=== PATIENT | female | born 1990 | race Hispanic/Latino ===

== ENCOUNTER 2021-10-13 12:48 | Emergency (ER) | payer BC ==
--- OUTSIDE RECORDS SUMMARY | 2021-10-13 12:53 | XMS REPORT | Continuity of Care Document ---
:1990 Author Organization [facility] t Address [address] [place] [address] Care Team Providers Name Role Phone RODRIGUEZVANESSA Primary Care Physician Unavailable Royce Rodriguez Attending Clinician Unavailable SOHA PAPPAS Attending Clinician Unavailable MIAN Attending Clinician Unavailable DAMARI Attending Clinician Unavailable Benny OSORIO Attending Clinician BENNY Attending Clinician Unavailable Stewart MCNALLY Attending Clinician Unavailable Susu ALVAREZ Attending Clinician Unavailable Doctor Unassigned, Name Attending Clinician Unavailable Lab, Fam Pob I Attending Clinician Unavailable SOHA PAPPAS Admitting Clinician Unavailable SCOTT STOVER Admitting Clinician Unavailable Payers Payer Name Policy Type Policy Number Effective Date Expiration Date S sandra BCBSTX BLUE [id number] 2020 ESSENTIALS/BLUE 00:00:00 ESSENTIALS ACCESS HMO Problems Condition Condition Condition Status Onset Resolution Last Treating Co mments Source Name Details Category Date Date Treatment Clinician Date MORBID Diagnosis Active 2021-09-21 Mem oria OBESITY - 1-13 12:43:00 l E66.01 / MORBID 00:00: [place] HIATAL OBESITY - 00 HERNIA E66.01 / HIATAL HERNIA Active 09/09/2021 [facility] [place] Type 2 Type 2 Disease Active 2021-1 Univers diabetes diabetes 1-13 ity of mellitus mellitus 00:00: [place] without without 00 Medical complicati complicati Br anch on, on, without without long-term long-term current current use of use of insulin insulin Morbid Morbid Disease Active 2020-08 Univers obesity obesity 1-13 ity of with BMI with BMI 00:00: [place] of of 00 Medical 40.0-44.9, 40.0-44.9, Br anch adult adult REFLUX - Diagnosis Active 2021-03-23 M emoria K21.9 7-12 08:16:00 l REFLUX - 00:00: [place] K21.9 00 Active 03/08/2021 [facility] [place] GASTRO-ESO Diagnosis Active 2021-03-23 Memoria PHAGEAL 08:16:00 l REFLUX [place] DISEASE GASTRO-ESO WITHOUT PHAGEAL REFLUX DISEASE WITHOUT Active [facility] [place] MORBID Diagnosis Active 2021-09-21 Mem oria (SEVERE) 12:43:00 l OBESITY MORBID [place] DUE TO (SEVERE) EXCESS CA OBESITY DUE TO EXCESS CA Active MH [place] Depressive Problem Resolve 2021-09-27 Memoria disorder d 08:39:51 l (disorder) [place] Depressive disorder (disorder) Resolved Problem 09/27/2021 [facility] [place] Diabetes Problem Resolve 2021-09-27 Me moria mellitus d 08:39:51 l (disorder) Diabetes He [place] mellitus (disorder) Resolved Problem 09/27/2021 [facility] [place] Polycystic Problem Resolve 2021-09-27 Memoria ovary d 08:39:51 l syndrome [place] Polycystic ovary syndrome Resolved Problem 09/27/2021 [facility] [place] No known No known Disease [place] active active Health problems problems Allergies, Adverse Reactions, Alerts Allergy Allergy Status Severity Reaction(s) Onset Inactive Treating Comm ents Source Name Type Date Date Clinician NO KNOWN Drug Active Univers ALLERGIE Class ity of [facility] Social History Social Habit Start Date Stop Date Quantity Comments Source History [facility] University o f Alcohol Std [place] [facility] History [facility] University o f Alcohol Binge [facility] Exposure to Not sure [place] [facility] SARS-CoV-2 (event) Alcohol intake 2021-09-08 2021-09-08 Current drinker Unive rsity of 00:00:00 00:00:00 of alcohol [place] [facility] (finding) [facility] Alcohol Comment 2021-08-172021-08-17 1-2 x per month, Uni versity of 00:00:00 00:00:[address] [facility] History SDOH 2021-07-10 2021-07-10 1 University o f Alcohol Frequency 00:00:00 00:00:00 [facility] Tobacco use and 2021-06-09 2021-06-09 Never used Universit y of exposure 00:00:00 00:00:[address] [facility] Social History 2021-03-16 2021-03-16 [facility] ermann 21:11:08 21:11:08 Sex [birth year] Universit y of 00:00:00 00:00:[address] [facility] Smoking Status Start Date Stop Date Source Never smoker [facility] Medications Ordered Filled Start Stop Current Ordering Indication Dosage Frequency Signature Comments Components Source Medication Medication Date Date Medication? Clinician (SIG) Name Name [facility] No Notes: Memoria 1- Same as l 11:00: Ancef [place] 00 Lovenox Yes Notes: Memoria 1- (Same as: l 11:00: Lovenox) Neurontin Yes Notes: Memori a - (Same as: l 11:00: Neurontin) Celebrex Yes Notes: Memoria - NSAID. l 11:00: Please check indication . Not for seizure. (Same As: CeleBREX) Ofirmev Yes Notes: Memoria 1- Infuse l 11:00: over 15 minutes Do not exceed 4gm/day of acetaminop hen MEDICATION WASTE Product Size: 1000 mg Product Wasted: ___ mg Mefoxin Yes Notes: Memoria 1- (Same As: l 11:00: Mefoxin) MEDICATION WASTE Product Size: 2000 mg Product Wasted: ___ mg Scopolamine Yes Notes: Nikhil martin 09-23 Remove old l 11:00: patch Edi 00 before applicatio n of new patch Change patch every 72 hours (Same as: Transderm- Scop) blood sugar Yes [id number] Use as Univers diagnostic -12 directed ity o f (ACCU-CHEK 00:00: daily [place] GUIDE TEST 00 Medical STRIPS) Branch strip glipiZIDE Yes [id number] 10mg Take 1 U nivers XL 10 mg 24 -12 tablet by ity of hr tablet 00:00: mouth [place] 00 daily with Medical breakfast. Branch dapaglifloz Yes [id number] 10mg Take 1 Univers in -12 tablet by ity of ([facility]) 00:00: mouth [place] 10 mg 00 daily. Medical tablet Branch ACCU-CHEK Yes [id number] Use as U nivers SOFTCLIX -12 directed ity of LANCETS 00:00: daily [place] Misc 00 Medical Branch escitalopra 2020-08 Yes 20mg Take 20 mg Univers m oxalate 10-18 by mouth. ity o f 20 mg 14:10: [place] tablet 11 Medical Branch Norethindrn 2020-08 Yes Univer s A-E 2- ity of Estradiol-I 14:10: [place] ciara 11 Medical (BLISOVI 24 Branch FE) 1 mg-20 mcg (24)/75 mg (4) per tablet dapaglifloz 2020-08- No [id number] 10mg Take 1 Univers in 0-13 -12 tablet by ity of (XICT) 00:00: 00:00 mouth [place] 10 mg 00 :00 daily. Medical tablet Branch glipiZIDE 2020-08- No [id number] 10mg Take 1 Univers XL 10 mg 24 0-13 -12 tablet by it y of hr tablet 00:00: 00:00 mouth [place] 00 :00 daily with Medical breakfast. Branch ergocalcife 2020-08 Yes TAKE ONE Un kyleigh rol, 0- (1) ity of vitamin d2, 00:00: CAPSULE(S) [place] 1,250 mcg 00 BY MOUTH Medica l (50,000 TWICE Branch unit) WEEKLY. capsule lidocaine No Route: IV, Me moria (ANES) 03-23 Drug form: l 14:16: INJ, ONCE, Stop date: 03/23/21 9:16:00 CDT propofol No Route: IV, Mem oria (ANES) 03-23 Drug form: l 14:16: INJ, ONCE, [place] 00 Stop date: 03/23/21 9:16:00 CDT Lactated No Route: IV, Mem oria Ringers 03-23 Total l Injection 13:58: Volume: Lydia nn IV (ANES) 00 1,000, 1000 mL Start date: 03/23/21 8:58:00 CDT, Stop date: 03/23/21 9:58:00 CDT Empaglifloz 2020-0 Yes Take by [place] in 7-08 mouth. Health (JARDIANCE 13:21: PO) 24 norethindro 2020-0 Yes UT ne-ethinyl 03-04 Health estradiol-f 13:21: errous 24 fumarate (Blisovi 24 Fe) 1-20 MG-MCG(24) tablet escitalopra 0 Yes 20mg QD Take 20 mg UT m (Lexapro) 03-04 by mouth 1 He alth 20 MG 13:21: (one) time tablet 24 each day. Empaglifloz 2020-0 Yes Take by [facility] in 7- mouth. Health (JARDIANCE 13:21: PO) 24 norethindro 2020-0 Yes UT ne-ethinyl 03-04 Health estradiol-f 13:21: errous 24 fumarate (Blisovi 24 Fe) 1-20 MG-MCG(24) tablet escitalopra 2020-0 Yes 20mg QD Take 20 mg UT m (Lexapro) 03-04 by mouth 1 He alth 20 MG 13:21: (one) time tablet 24 each day. Empaglifloz 2020-0 Yes Take by [facility] in 7- mouth. Health (JARDIANCE 08:21: PO) 24 norethindro 2020-0 Yes UT ne-ethinyl 03-04 Health estradiol-f 08:21: errous 24 fumarate (Blisovi 24 Fe) 1-20 MG-MCG(24) tablet escitalopra 2020-0 Yes 20mg QD Take 20 mg [facility] m (Lexapro) 03-04 by mouth 1 He alth 20 MG 08:21: (one) time tablet 24 each day. Empaglifloz 2020-0 Yes Take by UT in 7-08 mouth. Health (JARDIANCE 08:21: PO) 24 norethindro 2021-0 Yes UT ne-ethinyl 03-04 Health estradiol-f 08:21: errous 24 fumarate (Blisovi 24 Fe) 1-20 MG-MCG(24) tablet escitalopra 2020-0 Yes 20mg QD Take 20 mg UT m (Lexapro) 03-04 by mouth 1 He alth 20 MG 08:21: (one) time tablet 24 each day. Empaglifloz 2021-0 Yes Take by [facility] in 03-04 mouth. Health (JARDIANCE 08:21: PO) 24 norethindro 2021-0 Yes UT ne-ethinyl 03-04 Health estradiol-f 08:21: errous 24 fumarate (Blisovi 24 Fe) 1-20 MG-MCG(24) tablet escitalopra 2020-0 Yes 20mg QD Take 20 mg [facility] m (Lexapro) 03-04 by mouth 1 He alth 20 MG 08:21: (one) time tablet 24 each day. Empaglifloz 1-0 Yes Take by [facility] in 03-04 mouth. Health (JARDIANCE 08:21: PO) 24 norethindro 2021-0 Yes UT ne-ethinyl 03-04 Health estradiol-f 08:21: errous 24 fumarate (Blisovi 24 Fe) 1-20 MG-MCG(24) tablet escitalopra 2020-0 Yes 20mg QD Take 20 mg [facility] m (Lexapro) 03-04 by mouth 1 He alth 20 MG 08:21: (one) time tablet 24 each day. Empaglifloz 1-0 Yes Take by [facility] in 03-04 mouth. Health (JARDIANCE 08:21: PO) 24 norethindro 2021-0 Yes UT ne-ethinyl 03-04 Health estradiol-f 08:21: errous 24 fumarate (Blisovi 24 Fe) 1-20 MG-MCG(24) tablet escitalopra 202-0 Yes 20mg QD Take 20 mg [facility] m (Lexapro) 03-04 by mouth 1 He alth 20 MG 08:21: (one) time tablet 24 each day. Empaglifloz 2021-0 Yes Take by [facility] in 7- mouth. Health (JARDIANCE 08:21: PO) 24 norethindro 2021-0 Yes UT ne-ethinyl 03-04 Health estradiol-f 08:21: errous 24 fumarate (Blisovi 24 Fe) 1-20 MG-MCG(24) tablet escitalopra 0 Yes 20mg QD Take 20 mg [facility] m (Lexapro) 03-04 by mouth 1 He alth 20 MG 08:21: (one) time tablet 24 each day. Empaglifloz 0 Yes Take by [facility] in 03-04 mouth. Health (JARDIANCE 08:21: PO) 24 norethindro 0 Yes UT ne-ethinyl 03-04 Health estradiol-f 08:21: errous 24 fumarate (Blisovi 24 Fe) 1-20 MG-MCG(24) tablet escitalopra Yes 20mg QD Take 20 mg [facility] m (Lexapro) 03-04 by mouth 1 He alth 20 MG 08:21: (one) time tablet 24 each day. omeprazole 2020-0 Yes Univers 20 mg TbLD 2-07 ity of 00:00: [address] Omeprazole 2020-0 Yes [place] 20 MG 2-07 Health Tablet 00:00: Delayed 00 Release Dispersible Omeprazole 1-0 Yes [facility] 20 MG 2-07 Health Tablet 00:00: Delayed 00 Release Dispersible Omeprazole 2021-0 Yes [facility] 20 MG 2-07 Health Tablet 00:00: Delayed 00 Release Dispersible Omeprazole 2021-0 Yes [facility] 20 MG 2-07 Health Tablet 00:00: Delayed 00 Release Dispersible Omeprazole 2021-0 Yes [facility] 20 MG 2-07 Health Tablet 00:00: Delayed 00 Release Dispersible Omeprazole 2021-0 Yes [facility] 20 MG 2-07 Health Tablet 00:00: Delayed 00 Release Dispersible Omeprazole 2021-0 Yes [facility] 20 MG 2-07 Health Tablet 00:00: Delayed 00 Release Dispersible Omeprazole 2021-0 Yes [facility] 20 MG 2-07 Health Tablet 00:00: Delayed 00 Release Dispersible Omeprazole 2021-0 Yes [facility] 20 MG 2-07 Health Tablet 00:00: Delayed 00 Release Dispersible Immunizations Ordered Immunization Filled Immunization Date Status Commen ts Source Name Name [id number] 2021-02-02 Completed Nikhil ANDRADE-1273vaxMODERNA 00:00:00 Edi [id number]-19mR 2021-01-05 Completed Nikhil rodney NA-1273vaxMODERNA 00:00:00 Edi Vital Signs Vital Name Observation Time Observation Value Comments Source Systolic blood 2021-09-09 14:55:00 124 mm[Hg] [facility] Diastolic blood 2021-09-09 14:55:00 90 mm[Hg] [facility] pressure Heart rate 2021-09-09 14:55:00 92 /min [facility] temperature 2021-09-09 14:55:00 36.22 Yamilet [facility] Body height 2021-09-09 14:55:00 165.1 cm [facility] Body weight 2021-09-09 14:55:00 115.667 [facility] BMI 2021-09-09 14:55:00 42.43 kg/m2 [facility] Systolic blood 2021-09-08 21:39:00 124 mm[Hg] [facility] Diastolic blood 2021-09-08 21:39:00 84 mm[Hg] Unive rsity of [facility] Heart rate 2021-09-08 21:39:00 102 /min [facility] Body height 2021-09-08 21:39:00 165.1 cm [facility] Body weight 2021-09-08 21:39:00 117.482 kg [facility] BMI 2021-09-08 21:39:00 43.10 kg/m2 [facility] Oxygen saturation in 2021-09-08 21:39:00 98 /min [facility] Arterial blood by [facility] Pulse oximetry Branch Body height 2021-05-27 14:41:00 165.1 cm [facility] weight 2021-05-27 14:41:00 121.882 kg [facility] BMI 2021-05-27 14:41:00 44.71 kg/m2 [facility] Body height 2021-05-27 14:41:00 165.1 cm [facility] Body weight 2021-05-27 14:41:00 121.882 kg [facility] BMI 2021-05-27 14:41:00 44.71 kg/m2 [facility] Systolic blood 2021-03-04 13:20:00 139 mm[Hg] [facility] pressure Diastolic blood 2021-03-04 13:20:00 101 mm[Hg] [facility] alth pressure Heart rate 2021-03-04 13:20:00 90 /min [facility] Body temperature 2021-03-04 13:20:00 36.61 Yamilet [facility] Body height 2021-03-04 13:20:00 165.1 cm [facility] Body weight 2021-03-04 13:20:00 123.832 kg [facility] BMI 2021-03-04 13:20:00 45.43 kg/m2 [facility] Systolic blood 2021-03-04 13:20:00 139 mm[Hg] [facility] pressure Diastolic blood 2021-03-04 13:20:00 101 mm[Hg] [facility]th pressure Heart rate 2021-03-04 13:20:00 90 /min [facility] Body temperature 2021-03-04 13:20:00 36.61 Yamilet [facility] Body height 2021-03-04 13:20:00 165.1 cm [facility] Body weight 2021-03-04 13:20:00 123.832 kg [facility] BMI 2021-03-04 13:20:00 45.43 kg/m2 [facility] Systolic (mm Hg) 2021-09-21 18:10:00 Nikhil ria Edi Diastolic (mm Hg) 2021-09-21 18:10:00 Mem orial [place] Height 2021-09-21 17:59:00 165.1 cm [facility]i Weight 2021-09-21 17:59:00 [facility] BMI Calculated 2021-09-21 17:59:00 Memori al Ed[place] Height 2021-09-21 17:07:00 165.1 cm [facility] Edi Weight 2021-09-21 17:07:00 [facility] [place] BMI Calculated 2021-09-21 17:07:00 Memori al [place] Height 2021-03-16 20:53:00 165.1 cm [facility] [place] Weight 2021-03-16 20:53:00 [facility] [place] BMI Calculated 2021-03-16 20:53:00 Ame [place] Procedures Procedure Date / Time Performing Source Performed Clinician POCT HEMOGLOBIN A1C TEST 2021-09-08 Genny Logan ity of 21:53:[address] [facility] Esophagogastroduodenoscopy, 2021-03-23 Nikhil Daley flexible, transoral; with biopsy, 14:08:00 single or multiple Cholecystectomy 2016-08-28 [facility] Edi 00:00:00 Esophagogastroduodenoscopy Bibi iaroyce Daley Encounters Start End Encounter Admission Attending Care Care Encounter Source Date/Time Date/Time Type Type Clinicians Facility Department ID 2021-09-22 Outpatient Rodriguez, Na STLMLC STLMLC [id number] [facility] 14:32:51 [facility] 2021-09-22 Outpatient Rodriguez, Na STLMLC STLMLC [id number] [facility] 14:31:30 [facility] 2021-09-22 Outpatient Rodriguez, Na STLMLC STLMLC [id number] [facility] 14:23:31 [id number] [facility] 2021-09-22 Outpatient Rodriguez, Na STLMLC STLMLC [id number] [facility] 14:10:02 [id number] [facility] 2021-09-22 Outpatient Rodriguez, Na STLMLC STLMLC [id number] [facility] 13:50:12 [id number] [facility] 2021-09-22 Outpatient Rodriguez, Na STLMLC STLMLC [id number] [facility] 13:16:33 [id number] [facility] 2021-09-22 Outpatient Rodriguez, Na STLMLC STLMLC [id number] [facility] [address] 12:48:27 [id number] [facility] 2021-09-22 Outpatient Rodriguez, Na STLMLC STLMLC [id number] [facility] 12:24:22 [id number] [facility] 2021-09-22 Outpatient Rodriguez, Na STLMLC STLMLC [id number] [facility] 12:17:49 [id number] [facility] 2021-09-22 Outpatient STLMLC STLC [id number] [facility] 12:10:39 [id number] [facility] 2021-09-17 Inpatient MIAN, [facility] AMBROSIO [id number] [facility] B 10:43:16 JASBIR 2021-09-09 Outpatient MIAN, [facility] [id number] [place] 09:17:22 [facility] 2021-05-26 Outpatient TANCHIDONOVAN, [facility] [id number] [place] 10:01:38 [facility] 2021-10-08 2021-10-10 Inpatient WALKER, [facility] AMBROSIO [id number] [facility] 05:46:00 11:50:00 JASBIR 2021-09-24 2021-09-24 ambulatory STLMLC STLC [id number] [facility] 2021-09-23 2021-09-23 [facility] [id number] Memoria 18:30:00 18:30:00 r Edi 01 l [place] Lydia 2021-09-09 2021-09-09 Consult Mian [facility] [id number] [place] 08:45:00 09:21:36 Jasbir [place] [id number] [facility] [id number] [id number] AND 4 WOMENS 2021-09-08 2021-09-08 Office Benny [facility] [id number] Univers 15:30:00 16:36:19 [facility] [id number] it y of [place] [id number] Scott as LEROY?BLEA [id number] [address] MEDICAL OFFICE BUILDING 2021-09-08 2021-09-08 Outpatient R BENNY [facility] [id number] Univers 15:30:00 16:36:19 [facility] 2021-09-08 2021-09-08 [id number] 2021-09-02 2021-09-02 ambulatory STLMLC STLMLC [id number] [facility] 00:00:00 00:00:00 Blanca Valladares ent Clinics 2021-08-25 2021-08-25 Telephone KAVITA Pappas [id number] [place] 00:00:00 00:00:00 Jasbir AURORAE [id number] H [facility] [id number] [facility] [id number] 2021-08-06 2021-08-06 KAVITA Bojorquez [facility] [id number] [place] 00:00:00 00:00:00 Peter SUGAR [id number] He alth [facility] [id number] [id number] AND 4 WOMENS 2021-05-27 2021-05-27 Nutrition KAVITA Bui [facility] [id number] 09:28:07 10:00:39 Marisol [place] [id number] [facility] [id number] [address] [id number] AND 4 WOMENS 2021-05-27 2021-05-27 Nutrition KAVITA Bui [facility] [id number] [place] 09:28:07 10:00:39 Marisol SUGAR [id number] He alth [facility] [id number] [address] [id number] AND 4 WOMENS 2021-05-26 2021-05-26 Telephone KAVITA William [facility] [id number] 00:00:00 00:00:00 Brigette [place] [id number] [facility] [id number] [address] [id number] AND 4 WOMENS 2021-05-26 2021-05-26 Telephone Brigette William [facility] 1.2.840. [id number] [place] 00:00:00 00:00:00 Brigette William [place] [id number] [facility] [facility] [id number] [id number] AND 4 WOMENS 2021-05-14 2021-05-14 [id number] 2021-05-10 2021-05-10 [facility] [id number] 2021-04-06 2021-04-06 Outpatient [facility] [id number] [facility] 2021-03-23 2021-03-23 [facility] [id number] 13:06:00 14:47:00 Outpatient r Edi 00 l [place] Lydia nn 2021-03-23 2021-03-23 Outpatient MIAN, [facility] AMBROSIO [id number] MHFB 08:06:00 09:47:00 JASBIR 2021-03-23 2021-03-23 Telephone KAVITA Cristobal SABETHA [id number] [id number] 00:00:00 00:00:00 Marika WINTER [id number] MEDICAL [id number] [place] [id number] 2021-03-23 2021-03-23 Telephone Marika Cristobal SABETHA 1.2 .840.114 [id number] [place] 00:00:00 00:00:00 Marika Cristobal [id number] 8 [facility] MEDICAL [id number] [place] [id number] 2021-03-04 2021-03-04 Office Mian [facility] 1.2.840.114 [id number] 08:10:35 09:10:54 Visit Jasbir [place] [id number] [facility] [id number] [id number] AND 4 WOMENS 2021-03-04 2021-03-04 Office Mian [facility] 1.2.840.114 [id number] [place] 08:10:35 09:10:54 Visit Jasbir SU[place]AR [id number] He alth [place] [facility] [id number] [address] [id number] AND 4 WOMENS 2021-02-17 2021-02-17 [facility] [id number] [facility] 2020-12-01 2020-12-01 [facility] [id number] [facility] 2020-10-27 2020-10-27 Outpatient [facility] [id number] [facility] 2020-10-20 2020-10-20 Orders Doctor KAITLYN 1.2.840.114 [id number] 00:00:00 00:00:00 Only Unassigned, Y[id number] [facility] [id number] [id number] 2020-09-02 2020-09-02 Outpatient [facility] [id number] [facility] 2020-08-24 2020-08-24 Outpatient [facility] [id number] [facility] 2020-08-17 2020-08-17 Laboratory Lab, [facility] 1.2.840.114 [id number] 18:03:27 18:23:27 Only Fam Pob I Health [id number] [place] [id number] Professio [id number] nal [address] 2020-08-17 2020-08-17 Letter Doctor KAITLYN 1.2.840.114 [id number] 00:00:00 00:00:00 (Out) Unassigned, YAZMIN [id number] [facility] [id number] 2020-07-31 2020-07-31 Outpatient [facility] [id number] [facility] 00[facility]:00 [facility] Results Test Description Test Time Test Comments Results Result Comments Source [facility] 2021-09-21 19:51:00 Test Item Value Reference Range Interpretation Comme nts Coronavirus (COVID-19) YARI (test code = Detected 2*ABN*(09/21/21 1:5 1 PM) Coronavirus (COVID-19) YARI) [facility]2022-01-25 18:40:00 Test Item Value Reference Range Interpretation Comments A/G Ratio (test code = A/G Ratio) 0.9 1 0.7-1.6 [facility]2022-01-25 18:40:00 Test Item Value Reference Range Interpretation Comments eGFR (test code = eGFR) 127 [facility]uuilzpGZMYHHHKRA6167-40-88 18:40:00 Test Item Value Reference Range Interpretation Comments WBC (test code = WBC) 11.1 3.7-10.4 [facility] CenterSnbgrtxBGHGFJLRKH8506-70-54 18:40:00 Test Item Value Reference Range Interpretation Comments RBC (test code = RBC) 4.76 4.20-5.40 [facility] CenterEfqhxwjLYMRDHQSCT6581-75-99 18:40:00 Test Item Value Reference Range Interpretation Comments Hgb (test code = Hgb) 14.7 12.0-16.0 [facility] CenterNhxzgcrGMNKXJEZAK2274-95-80 18:40:00 Test Item Value Reference Range Interpretation Comments Hct (test code = Hct) 43.5 36.0-48.0 [facility] CenterRmnsbleBXKPSTGSYZ6072-18-54 18:40:00 Test Item Value Reference Range Interpretation Comments MCV (test code = MCV) 91.3 80.0-98.0 [facility] CenterAjsfbxpYAIWGQOWBU0602-77-55 18:40:00 Test Item Value Reference Range Interpretation Comments MCH (test code = MCH) 30.9 pg 27.0-31.0 [place] [id number] 18:40:00 Test Item Value Reference Range Interpretation Comments MCHC (test code = MCHC) 33.8 32.0-36.0 [facility] [id number] 18:40:00 Test Item Value Reference Range Interpretation Comments RDW (test code = RDW) 13.8 11.5-14.5 [facility] CenterDcsiwvsSSKELLZLEN8783-12-30 18:40:00 Test Item Value Reference Range Interpretation Comments Platelet (test code = Platelet) 348 133-450 [place] [address]-01-25 18:40:00 Test Item Value Reference Range Interpretation Comments MPV (test code = MPV) 8.4 7.4-10.4 [place] [address]-01-25 18:40:00 Test Item Value Reference Range Interpretation Comments Segs (test code = Segs) 74.5 45.0-75.0 [place] [id number] 18:40:00 Test Item Value Reference Range Interpretation Comments Lymphocytes (test code = Lymphocytes) 19.2 20.0-40.0 [place] [id number] 18:40:00 Test Item Value Reference Range Interpretation Comments Monocytes (test code = Monocytes) 4.6 2.0-12.0 [place] [id number] 18:40:00 Test Item Value Reference Range Interpretation Comments Eosinophils (test code = 1.0 See_Comment [A utomated message] The Eosinophils) system which ge nerated this result tra nsmitted reference range : <=4.0. The reference r jerilyn was not used to int erpret this result as normal/abnormal . [place] [address]-01-25 18:40:00 Test Item Value Reference Range Interpretation Comments Basophils (test code = 0.7 See_Comment [Aut omated message] The Basophils) system which ge nerated this result tra nsmitted reference range : <=1.0. The reference r jerilyn was not used to int erpret this result as normal/abnormal . [place] [id number] 18:40:00 Test Item Value Reference Range Interpretation Comments Neutrophils # (test code = Neutrophils 8.3 1.5-8.1 #) [place] [id number] 18:40:00 Test Item Value Reference Range Interpretation Comments Lymphocytes # (test code = Lymphocytes 2.1 1.0-5.5 #) [place] [id number] 18:40:00 Test Item Value Reference Range Interpretation Comments Monocytes # (test code 0.5 See_Comment [Aut omated message] The = Monocytes #) system which generated this result tra nsmitted reference range : <=0.8. The reference r jerilyn was not used to int erpret this result as normal/abnormal . [place] [id number] 18:40:00 Test Item Value Reference Range Interpretation Comments Eosinophils # (test code 0.1 See_Comment [A utomated message] The = Eosinophils #) system whic h generated this result tra nsmitted reference range : <=0.5. The reference r jerilyn was not used to int erpret this result as normal/abnormal . [id number] 18:40:00 Test Item Value Reference Range Interpretation Comments Basophils # (test code 0.1 See_Comment [Aut omated message] The = Basophils #) system which generated this result tra nsmitted reference range : <=0.2. The reference r jerilyn was not used to int erpret this result as normal/abnormal . [facility] [id number] 18:40:00 Test Item Value Reference Range Interpretation Comments Hgb A1C (test code = Hgb A1C) 10.8 [facility] [id number] 18:40:00 Test Item Value Reference Range Interpretation Comments ABO/Rh (test code = ABO/Rh) A POS [facility] [id number] 18:40:00 Test Item Value Reference Range Interpretation Comments Antibody Scrn (test Negative (09/21/21 code = Antibody Scrn) 12:40 PM) [facility] [id number] 18:40:00 Test Item Value Reference Range Interpretation Comments Glucose Lvl (test code = Glucose Lvl) 111 70-99 [facility] [id number] 18:40:00 Test Item Value Reference Range Interpretation Comments BUN (test code = BUN) 9 7-22 [facility] [id number] 18:40:00 Test Item Value Reference Range Interpretation Comments Creatinine Lvl (test code = Creatinine 0.53 0.50-1.40 Lvl) [facility] [employer] [id number] 18:40:00 Test Item Value Reference Range Interpretation Comments Sodium Lvl (test code = Sodium Lvl) 137 135-145 [facility] [id number] 18:40:00 Test Item Value Reference Range Interpretation Comments Potassium Lvl (test code = Potassium 3.8 3.5-5.1 Lvl) [facility] [employer] [id number] 18:40:00 Test Item Value Reference Range Interpretation Comments Chloride Lvl (test code = Chloride Lvl) 106 95-109 [place] [id number] 18:40:00 Test Item Value Reference Range Interpretation Comments CO2 (test code = CO2) 24 24-32 [place] [id number] 18:40:00 Test Item Value Reference Range Interpretation Comments Calcium Lvl (test code = Calcium Lvl) 8.9 8.5-10.5 [facility]MobileDayKRIST[facility] [id number] 18:40:00 Test Item Value Reference Range Interpretation Comments Total Protein (test code = Total 7.4 6.4-8.4 Protein) [facility]2022-01-25 18:40:00 Test Item Value Reference Range Interpretation Comments Albumin Lvl (test code = Albumin Lvl) 3.5 3.5-5.0 [place] [id number] 18:40:00 Test Item Value Reference Range Interpretation Comments ALT (test code = ALT) 86 See_Comment [Auto mated message] The system which ge nerated this result transmit robert reference range : <=65. The reference range was not used to interpr et this result as lane l/abnormal. [facility] [id number] 18:40:00 Test Item Value Reference Range Interpretation Comments AST (test code = AST) 47 See_Comment [Auto mated message] The system which ge nerated this result transmit robert reference range : <=37. The reference range was not used to interpr et this result as lane l/abnormal. [facility] [id number] 18:40:00 Test Item Value Reference Range Interpretation Comments Alk Phos (test code = Alk Phos) 101 39-136 [facility] [id number] 18:40:00 Test Item Value Reference Range Interpretation Comments Bili Total (test code = Bili Total) 0.6 0.2-1.3 [facility] [id number] 18:40:00 Test Item Value Reference Range Interpretation Comments AGAP (test code = AGAP) 10.8 10.0-20.0 [facility] [id number] 18:40:00 Test Item Value Reference Range Interpretation Comments B/C Ratio (test code = B/C Ratio) 17 1 6-25 [facility] CampusCHE[facility] [id number] 18:40:00 Test Item Value Reference Range Interpretation Comments Globulin (test code = Globulin) 3.9 2.7-4.2 [facility] HEMOGLOBIN A1C [id number] 21:54:00 Test Item Value Reference Range Interpretation Comments POCT HBA1C (test code = 4548-4) 13.6 % 4-6 A Lab Interpretation (test code = Abnormal 84343-7) [facility] [id number] 13:17:00 Test Item Value Reference Range Interpretation Comments U Preg (test code = U Negative (03/23/21 8:17 Preg) AM) [facility] [id number] 17:38:00 Test Item Value Reference Range Interpretation Comments Coronavirus (COVID-19) Not Detected YARI (test code = *NA*(03/19/21 12:38 Coronavirus (COVID-19) PM) YARI) [facility]
[2021-10-13] MEDS ORDERED: NA CHLORIDE 0.9% 1,000 ML ONE ×2 (15:56→16:40)
[2021-10-13] MEDS ORDERED: KETOROLAC 30 MG/ML INJ ONE (15:56)
[2021-10-13] MEDS ORDERED: ACYCLOVIR 400 MG TABLET ONE (16:04)
[2021-10-13 16:11] LABS: Absolute Lymphocytes (CBC) 1.2 K/uL (0.7-4.9); Lymphocytes % 7.3 % (15.3-44.8); MPV 8.1 fL (7.6-11.3); RBC Red Blood Cell Count 5.13 M/uL (3.86-4.86)
[2021-10-13 16:35] LABS: BUN Blood Urea Nitrogen 8 mg/dL (7-18); Bicarbonate 16 mmol/L (21-32); Glucose Level 140 mg/dL (74-106); Potassium 3.7 mmol/L (3.5-5.1); Sodium Level 133 mmol/L (136-145)
[2021-10-13 18:35] LABS: BUN Blood Urea Nitrogen 6 mg/dL (7-18); Bicarbonate 18 mmol/L (21-32); Glucose Level 94 mg/dL (74-106); Potassium 3.7 mmol/L (3.5-5.1); Sodium Level 137 mmol/L (136-145)
[2021-10-13 18:37] LABS: Blood Morphology Comment NOT SEEN (NOT SEEN); Platelet Estimate ADEQ; White Blood Cell Scan OK (OK)
--- NOTE | 2021-10-13 19:14 | ER ---
Nurse's Notes [facility] Name: Gemma Bray Age: 30 yrs Sex: Female : 1990 Arrival Date: 10/13/2021 Time: 12:52 Bed 13 Private MD: Diagnosis: Dehydration;Other herpesviral infection Presentation: 10/13 13:40 Chief complaint: Patient states: I had gastric bypass on 10/08/21 and I guess I am jg9 having vaginal pain x 2 days, seen at urgent care and advised of possible infection of unknown origin-TX with lidocaine and sent home. Patient is here now due to the amount of pain she is experiencing 06/06, patient crying in tears. Coronavirus screen: Vaccine status: Patient reports receiving the 2nd dose of the covid vaccine. Ebola Screen: Patient negative for fever greater than or equal to 101.5 degrees Fahrenheit, and additional compatible Ebola Virus Disease symptoms Patient denies exposure to infectious person. Patient denies travel to an Ebola-affected area in the 21 days before illness onset. Initial Sepsis Screen: Does the patient meet any 2 criteria? Yes Does the patient have a suspected source of infection? No. Patient's initial sepsis screen is negative. Risk Assessment: Do you want to hurt yourself or someone else? Patient reports no desire to harm self or others. Onset of symptoms is unknown. 13:40 Method Of Arrival: Ambulatory jg9 13:40 Acuity: СВЕТЛАНА 3 jg9 Triage Assessment: 13:44 General: Appears distressed, uncomfortable, Behavior is crying. Pain: Complains of pain jg9 in pelvis Aggravated by increased activity. 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 - Social history:: Smoking status: Patient denies any tobacco usage or history of. Screenin:45 Abuse screen: Denies threats or abuse. Denies injuries from another. Nutritional jg9 screening: No deficits noted. Tuberculosis screening: No symptoms or risk factors identified. Fall Risk None identified. Assessment: 15:26 Reassessment: No changes from previously documented assessment. Patient and/or family iw updated on plan of care and expected duration. Pain level reassessed. Patient is alert, oriented x 3, equal unlabored respirations, skin warm/dry/pink. 16:22 Reassessment: No changes from previously documented assessment. Patient and/or family ll1 updated on plan of care and expected duration. Pain level reassessed. Patient is alert, oriented x 3, equal unlabored respirations, skin warm/dry/pink. 17:20 Reassessment: No changes from previously documented assessment. Patient and/or family ll1 updated on plan of care and expected duration. Pain level reassessed. Patient is alert, oriented x 3, equal unlabored respirations, skin warm/dry/pink. 18:20 Reassessment: No changes from previously documented assessment. Patient and/or family ll1 updated on plan of care and expected duration. Pain level reassessed. Patient is alert, oriented x 3, equal unlabored respirations, skin warm/dry/pink. 20:07 Reassessment: D/C per MD order. Discharge/Prescription instructions given to patient tk1 and . Verbalized understanding. Vital Signs: 13:40 BP 143 / 90; Pulse 120; Resp 25 S; Temp 98.2; Pulse Ox 96% on R/A; Weight 106.59 kg jg9 (R); Height 5 ft. 5 in. (165.10 cm) (R); 15:33 BP 120 / 88; Pulse 113; Resp 18; Temp 98.9; Pulse Ox 96% on R/A; Pain 10/10; ll1 16:21 BP 126 / 95; Pulse 109; Resp 17; Pulse Ox 96% on R/A; ll1 19:12 BP 118 / 83; Pulse 93; Pulse Ox 97% on R/A; ll1 13:40 Body Mass Index 39.11 (106.59 kg, 165.10 cm) jg9 ED Course: 12:52 Patient arrived in ED. mr 13:44 Triage completed. jg9 13:46 Arm band placed on right wrist. jg9 15:26 Patient placed in an exam room, on a stretcher. iw 15:27 Shonda Samuel FNP-C is [facility]. kb 15:27 Jesse Pyle MD is Attending Physician. kb 15:33 Gabriella Rene, RN is Primary Nurse. ll1 15:33 Patient has correct armband on for positive identification. Bed in low position. Call ll1 light in reach. Side rails up X 1. Pulse ox on. NIBP on. 19:20 Primary Nurse role handed off by Gabriella Rene RN mw2 20:07 No provider procedures requiring assistance completed. IV discontinued, intact, tk1 bleeding controlled, No redness/swelling at site. Pressure dressing applied. Administered Medications: 16:00 Drug: NS 0.9% 1000 ml Route: IV; Rate: 1000 ml; Site: right antecubital; iw 18:13 Follow up: Response: No adverse reaction; IV Status: Completed infusion; IV Intake: ll1 1000ml 16:00 Drug: Ketorolac 15 mg Route: IVP; Site: right antecubital; iw 17:49 Follow up: Response: No adverse reaction ll1 16:11 Drug: valACYclovir 1000 mg Route: PO; iw 17:49 Follow up: Response: No adverse reaction ll1 16:40 Drug: NS 0.9% 1000 ml Route: IV; Rate: 1000 ml; Site: right antecubital; ll1 18:13 Follow up: Response: No adverse reaction; IV Status: Completed infusion; IV Intake: ll1 1000ml Intake: 18:13 IV: 1000ml; Total: 1000ml. ll1 18:13 IV: 1000ml; Total: 2000ml. ll1 Outcome: 19:13 Discharge ordered by . kb 20:07 Discharged to home ambulatory, with family. tk1 20:07 Condition: stable 20:07 Discharge instructions given to patient, significant other, Instructed on discharge instructions, follow up and referral plans. medication usage, Demonstrated understanding of instructions, follow-up care, medications, wound care. 20:09 Patient left the ED. tk1 Signatures: Shonda Samuel, MARIO MCGOWANP-Katie Gurrola Irene, RN RN iw Jose F wDyer mw2 Gabriella Rene RN RN ll1 Miryam Quintana RN RN mendelgMellisa Telles tk1
--- NOTE | 2021-10-13 19:14 | EDPHYS ---
Physician Documentation [facility] Name: Gemma Bray Age: 30 yrs Sex: Female : 1990 Arrival Date: 10/13/2021 Time: 12:52 Bed 13 Private MD: ED Physician Jesse Pyle HPI: 10/13 16:05 This 30 yrs old Female presents to ER via Ambulatory with complaints of Post kb Surgical Pain, Vaginal Pain. 16:05 The patient presents with vaginal pain. Modifying factors: The symptoms are alleviated kb by nothing, the symptoms are aggravated by pressure, urinating. Associated signs and symptoms: The patient has no apparent associated signs or symptoms. The patient has not experienced similar symptoms in the past. The patient has not recently seen a physician. 16:05 Onset: The symptoms/episode began/occurred 2 day(s) ago. Severity of symptoms: At their kb worst the symptoms were moderate, severe, in the emergency department the symptoms are unchanged. Pt c/o vaginal pain for 2 days. States she hasn't been drinking fluids because she doesn't want to urinate due to burning on skin. States she had a gastric bypass a week ago. . 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 - Social history:: Smoking status: Patient denies any tobacco usage or history of. ROS: 16:03 Constitutional: Negative for fever, chills, and weight loss. kb 16:03 : Positive for external vaginal pain. 16:03 All other systems are negative. Exam: 16:02 Constitutional: This is a well developed, well nourished patient who is awake, alert, kb and in no acute distress. Head/Face: Normocephalic, atraumatic. ENT: Moist Mucous membranes Respiratory: Respirations even and unlabored. No increased work of breathing. Talking in full sentences Abdomen/GI: Soft, non-tender. No distention Skin: Warm, dry with normal turgor. Normal color. MS/ Extremity: Pulses equal, no cyanosis. Neurovascular intact. Full, normal range of motion. Neuro: Awake and alert, GCS 15, oriented to person, place, time, and situation. Moves all extremities. Normal gait. Psych: Awake, alert, with orientation to person, place and time. Behavior, mood, and affect are within normal limits. 16:02 : Pelvic Exam: External exam: herpes lesions noted, reveals ulcerations on external genitalia. Vital Signs: 13:40 BP 143 / 90; Pulse 120; Resp 25 S; Temp 98.2; Pulse Ox 96% on R/A; Weight 106.59 kg jg9 (R); Height 5 ft. 5 in. (165.10 cm) (R); 15:33 BP 120 / 88; Pulse 113; Resp 18; Temp 98.9; Pulse Ox 96% on R/A; Pain 10/10; ll1 16:21 BP 126 / 95; Pulse 109; Resp 17; Pulse Ox 96% on R/A; ll1 19:12 BP 118 / 83; Pulse 93; Pulse Ox 97% on R/A; ll1 13:40 Body Mass Index 39.11 (106.59 kg, 165.10 cm) jg9 MDM: 15:28 Patient medically screened. 16:02 Data reviewed: vital signs, nurses notes. Data interpreted: Pulse oximetry: on room air kb is 96 %. Interpretation: normal. 19:12 Counseling: I had a detailed discussion with the patient and/or guardian regarding: the historical points, exam findings, and any diagnostic results supporting the discharge/admit diagnosis, lab results, the need for outpatient follow up, a family practitioner, an OB/Gyne specialist, to return to the emergency department if symptoms worsen or persist or if there are any questions or concerns that arise at home. 19:13 Data reviewed: I have discussed the patient's presentation/case with the attending Emergency Department Physician;. 10/13 15:46 Order name: CBC with Diff; Complete Time: 18:39 kb 10/13 15:46 Order name: Basic Metabolic Panel; Complete Time: 16:36 kb 10/13 15:54 Order name: Miscellaneous Test Lab EDMS 10/13 18:05 Order name: Basic Metabolic Panel; Complete Time: 19:09 kb 10/13 18:37 Order name: CBC Smear Scan; Complete Time: 18:39 EDMS 10/13 15:46 Order name: IV Start; Complete Time: 15:47 kb 10/13 16:56 Order name: Labs - recollect needed: recollect big red top for herpes simplex; Complete bd Time: 17:51 Administered Medications: 16:00 Drug: NS 0.9% 1000 ml Route: IV; Rate: 1000 ml; Site: right antecubital; iw 18:13 Follow up: Response: No adverse reaction; IV Status: Completed infusion; IV Intake: ll1 1000ml 16:00 Drug: Ketorolac 15 mg Route: IVP; Site: right antecubital; iw 17:49 Follow up: Response: No adverse reaction ll1 16:11 Drug: valACYclovir 1000 mg Route: PO; iw 17:49 Follow up: Response: No adverse reaction ll1 16:40 Drug: NS 0.9% 1000 ml Route: IV; Rate: 1000 ml; Site: right antecubital; ll1 18:13 Follow up: Response: No adverse reaction; IV Status: Completed infusion; IV Intake: ll1 1000ml Disposition Summary: 10/13/21 19:13 Discharge Ordered Location: Home kb Condition: Stable kb Diagnosis - Dehydration kb - Other herpesviral infection kb Followup: kb - With: Emergency Department - When: As needed - Reason: Worsening of condition Followup: kb - With: Private Physician - When: 2 - 3 days - Reason: Recheck today's complaints, Continuance of care, Re-evaluation by your physician Discharge Instructions: - Discharge Summary Sheet kb - Genital Herpes kb - Dehydration, Adult, Yguy-we-Zalw kb Forms: - Medication Reconciliation Form kb - Thank You Letter kb - Antibiotic Education kb - Prescription Opioid Use kb Prescriptions: - Valtrex 1 gram Oral tablet - take 1 tablet by ORAL route 2 times per day for 10 days; 20 tablet; Refills: 0, kb Product Selection Permitted Addendum: 10/15/2021 19:18 Co-signature as Attending Physician, Jesse Pyle MD I agree with the assessment and k dr plan of care. Signatures: Dispatcher [employer] EDGA Shonda Samuel, ANNA-C TOLL TICKET CLERK-Hayde Tran Kevin, MD MD [facility] Deepa Bates RN RN iw Gabriella Rene RN RN ll1 Miryam Quintana, RN RN jg9
[2021-10-13 21:08] VITALS: TEMP 98.9
[2021-10-13 21:11] VITALS: BP 118/83; O2SAT 97
== END 2021-10-13 20:09 | disposition home or self-care (01) ==
LOC: ER 12:48
DX: B00.89 Other herpesviral infection (principal); E86.0 Dehydration; Z98.84 Bariatric surgery status; E11.9 Type 2 diabetes mellitus without complications
CPT/HCPCS: 96361; 85025; 80048 ×2; 36415; 96374; 99283; J7030 ×2; 86695; 86696

== ENCOUNTER 2025-04-09 05:25 | Emergency (ER) | payer BC ==
--- OUTSIDE RECORDS SUMMARY | 2025-04-09 05:29 | XMS REPORT | Continuity of Care Document ---
Author Name Unknown Address [address] [facility] [address] [place] [address] [facility] Address [address] [facility] [address] [place] [address] Care Team Providers Care Insurance Solicitor Name Role Phone Alexandrea Mohr Primary Care Physician Aracelis Knox Attending Clinician Unavailable JASBIR PAPPAS Attending Clinician Unavailable LINDA WETZEL Attending Clinician Unavailable Ifeoma ALVAREZ, Latrice Attending Clinician UnavailJASBIR Hamilton Attending Clinician Brigette Miller MA Attending Clinician Marika Rodriguez RN Attending Clinician JASBIR Ball Admitting Clinician SHIVANI Guerra Admitting Clinician Marissa wade Payers Payer Name Policy Type Policy Number Effective Date Expirati on Date Source [facility] [id number] 2020 00:00:00 2020 00:00:00 [employer] [place] [address] [id number] 2020 00:00:00 [facility] Problems Condition Name Condition Details Condition Category Status Onset Date Resolution Date Last Treatment Date Treating Clinician Comments Source MORBID OBESITY - E66.01 / HIATAL HERNIA MORBID OBESITY - E66.01 / HIATAL HERNIA Active 09/09/2021 [place] [facility] Active 1-13 00:00: 00 2021-09-21 12:43:00 Chadd Daley REFLUX - K21.9 REFLUX - K21.9 Active 03/08/2021 [place] [facility] Active 7-12 00:00: 00 2021-03-23 08:16:00 Chadd Daley [id number] Herpes simplex vulvovagin itis Problem Active [facility] [id number] PCOS (polycysti c ovarian syndrome) Problem Active [facility] [id number] BMI 45.0-49.9, adult Problem Active [facility] [id number] Morbid obesity due to excess calories Problem Active [facility] [id number] Anxiety Problem Active [facility] [id number] Migraine without aura and without status migrainosu s, not intractabl e Problem Active [facility] [id number] Acquired absence of other specified parts of digestive tract Problem Active [facility] [id number] Controlled type 2 diabetes mellitus without complicati on, without long-term current use of insulin Problem Active [facility] Migraine Migraines Problem Active [facility] No known active problems No known active problems Disease [facility] GASTRO-ESO PHAGEAL REFLUX DISEASE WITHOUT GASTRO-ESO PHAGEAL REFLUX DISEASE WITHOUT Active [place] [facility] Active 2021-03-23 08:16:00 Chadd Daley MORBID (SEVERE) OBESITY DUE TO EXCESS CA MORBID (SEVERE) OBESITY DUE TO EXCESS CA Active [place] [facility] Active 2021-09-21 12:43:00 Chadd Daley Depressive disorder (disorder) Depressive disorder (disorder) Resolved Problem 09/27/2021 [place] Problem Resolve d 2021-09-27 08:39:51 Chadd Daley Diabetes mellitus (disorder) Diabetes mellitus (disorder) Resolved Problem 09/27/2021 [place] Problem Resolve d 2021-09-27 08:39:51 Chadd Daley Social History Social Habit Start Date Stop Date Quantity Comments Source History of Tobacco Use [facility] Sex Assigned At [facility] History SDOH Alcohol Frequency [facility] History SDOH Alcohol Std Drinks [facility] History SDOH Alcohol Binge [facility] Exposure to SARS-CoV-2 (event) 2022-09-30 00:00:00 2022-10-10 08:43:00 Not sure [facility] Alcohol intake 2022-10-10 00:00:00 2022-10-10 00:00:00 Current drinker of alcohol (finding) [facility] Social History 2021-03-16 21:11:08 2021-03-16 21:11:08 [place] Tobacco use and exposure 2021-03-04 00:00:00 2021-03-04 00:00:00 Smokeless tobacco non-user [facility] Alcohol Comment 2021-03-04 00:00:00 2021-03-04 00:00:00 It s more like 1-2 drinks a month. [facility] Cigarette pack-years 2021-03-04 00:00:00 2021-03-04 00:00:00 [facility] Smoking Status Start Date Stop Date Source Never smoked tobacco [facility] th Medications Ordered Medication Name Filled Medication Name Start Date Stop Date Current Medication? Ordering Clinician Indication Dosage Frequency Signature (SIG) Comments Components Source Empaglifloz in (JARDIANCE PO) 03-31 08:59: 10 Yes Take by mouth. [facility] escitalopra m (Lexapro) 20 MG tablet 8 08:59: 10 Yes 20mg QD Take 20 mg by mouth 1 (one) time each day. [facility] ergocalcife rol (Vitamin D-2) 1.25 MG (29057 UT) capsule - 00:00: 00 01-18 04:59 :00 No [id number] 21128G Take 1 capsule (50,000 Units total) by mouth 1 (one) time per week. [facility] Acetaminoph en-Codeine #3 300-30 MG Acetaminoph en-Codeine #3 300-30 MG 2-17 00:00: 00 No QID Acetaminop hen-Codein e #3 300-30 MG ondansetron (Zofran) 4 MG tablet 2-12 00:00: 00 Yes 4mg Take 4 mg by mouth every 8 (eight) hours if needed. [facility] Ancef 09-23 11:00: 00 No Notes: Same as Ancef Chadd Daley Lovenox 09-23 11:00: 00 Yes Notes: (Same as: Lovenox) Chadd Daley Neurontin 09-23 11:00: 00 Yes Notes: (Same as: Neurontin) Chadd Daley Celebrex 09-23 11:00: 00 Yes Notes: NSAID. Please check indication . Not for seizure. (Same As: CeleBREX) Chadd Daley Ofirmev 09-23 11:00: 00 Yes Notes: Infuse over 15 minutes Do not exceed 4gm/day of acetaminop hen MEDICATION WASTE Product Size: 1000 mg Product Wasted: ___ mg Chadd Daley Mefoxin 09-23 11:00: 00 Yes Notes: (Same As: Mefoxin) MEDICATION WASTE Product Size: 2000 mg Product Wasted: ___ mg Chadd Daley Scopolamine 09-23 11:00: 00 Yes Notes: Remove old patch before applicatio n of new patch Change patch every 72 hours (Same as: Transderm- Scop) Chadd Daley lidocaine (ANES) 03-23 14:16: 00 No Route: IV, Drug form: INJ, ONCE, Stop date: 03/23/21 9:16:00 CDT Chadd crane Edi propofol (ANES) 03-23 14:16: 00 No Route: IV, Drug form: INJ, ONCE, Stop date: 03/23/21 9:16:00 CDT Chadd Daley Lactated Ringers Injection IV (ANES) 1000 mL 03-23 13:58: 00 No Route: IV, Total Volume: 1,000, Start date: 03/23/21 8:58:00 CDT, Stop date: 03/23/21 9:58:00 CDT Chadd Daley Empaglifloz in (JARDIANCE PO) 03-04 13:21: 24 Yes Take by mouth. [facility] escitalopra m (Lexapro) 20 MG tablet 03-04 13:21: 24 Yes 20mg QD Take 20 mg by mouth 1 (one) time each day. [facility] escitalopra m (Lexapro) 20 MG tablet 03-04 08:21: 24 Yes 20mg QD Take 20 mg by mouth 1 (one) time each day. [facility] Empaglifloz in (JARDIANCE PO) 03-04 08:21: 24 Yes Take by mouth. [facility] Omeprazole 20 MG Tablet Delayed Release Dispersible 10-04 00:00: 00 Yes [facility] busPIRone HCl 10 MG busPIRone HCl 10 MG No 1{table t} TID busPIRone HCl 10 MG Cholestyram ine 4 GM Cholestyram ine 4 GM No BID Cholestyra mine 4 GM Omeprazole 40 MG Omeprazole 40 MG No 1{capsu le} QD Omeprazole 40 MG Escitalopra m Oxalate 20 MG Escitalopra m Oxalate 20 MG No 1{table t} QD Escitalopr am Oxalate 20 MG Jardiance 10 MG Jardiance 10 MG No 1{table t} QD Jardiance 10 MG Blisovi 24 Fe 1-20 MG-MCG(24) Blisovi 24 Fe 1-20 MG-MCG(24) No 1{table t} QD Blisovi 24 Fe 1-20 MG-MCG(24) Ergocalcife rol 53267 IU Ergocalcife rol 90272 IU No Ergocalcif desiree 34773 IU Omeprazole 40 MG Omeprazole 40 MG No 1{capsu le} QD Omeprazole 40 MG Jardiance 10 MG Jardiance 10 MG No 1{table t} QD Jardiance 10 MG Cholestyram ine 4 GM Cholestyram ine 4 GM No Cholestyra mine 4 GM Blisovi 24 Fe 1-20 MG-MCG(24) Blisovi 24 Fe 1-20 MG-MCG(24) No 1{table t} QD Blisovi 24 Fe 1-20 MG-MCG(24) busPIRone HCl 10 MG busPIRone HCl 10 MG No 1{table t} TID busPIRone HCl 10 MG Escitalopra m Oxalate 20 MG Escitalopra m Oxalate 20 MG No 1{table t} QD Escitalopr am Oxalate 20 MG Vital Signs Vital Name Observation Time Observation Value Comments S ource Systolic blood pressure 2022-10-10 14:52:00 123 mm[Hg] [facility] Diastolic blood pressure 2022-10-10 14:52:00 79 mm[Hg] [facility] Heart rate 2022-10-10 14:52:00 64 /min [facility] Body temperature 2022-10-10 14:52:00 36.72 Yamilet [facility] Body height 2022-10-10 14:52:00 165.1 cm [facility] Body weight 2022-10-10 14:52:00 89.585 [facility] BMI 2022-10-10 14:52:00 32.87 kg/m2 [facility] Systolic blood pressure 2022-03-31 13:57:00 124 mm[Hg] [facility] Diastolic blood pressure 2022-03-31 13:57:00 85 mm[Hg] [facility] Heart rate 2022-03-31 13:57:00 66 /min [facility] Body temperature 2022-03-31 13:57:00 36.61 Yamilet [facility] Body height 2022-03-31 13:57:00 165.1 cm [facility] Body weight 2022-03-31 13:57:00 91.627 [facility] BMI 2022-03-31 13:57:00 33.61 kg/m2 [facility] height 2022-02-02 10:00:00 65 [in_i] Commo n [facility] weight 2022-02-02 10:00:00 208 [lb_av] [facility] bmi 2022-02-02 10:00:00 34.61 kg/m2 [facility] Systolic blood pressure 2021-12-30 13:26:00 100 mm[Hg] [facility] Diastolic blood pressure 2021-12-30 13:26:00 64 mm[Hg] [facility] Heart rate 2021-12-30 13:26:00 64 /min [facility] Body temperature 2021-12-30 13:26:00 36.39 Yamilet [facility] Body height 2021-12-30 13:26:00 165.1 cm [facility] Body weight 2021-12-30 13:26:00 97.07 kg [facility] BMI 2021-12-30 13:26:00 35.61 kg/m2 [facility] Systolic blood pressure 2021-11-18 14:06:00 112 mm[Hg] [facility] Diastolic blood pressure 2021-11-18 14:06:00 70 mm[Hg] [facility] Heart rate 2021-11-18 14:06:00 76 /min [facility] Body temperature 2021-11-18 14:06:00 36.17 Yamilet [facility] Body height 2021-11-18 14:06:00 165.1 cm [facility] Body weight 2021-11-18 14:06:00 101.606 [facility] BMI 2021-11-18 14:06:00 37.28 kg/m2 [facility] Systolic blood pressure 2021-10-21 17:10:00 126 mm[Hg] [facility] Diastolic blood pressure 2021-10-21 17:10:00 83 mm[Hg] [facility] Heart rate 2021-10-21 17:10:00 105 /min [facility] Body temperature 2021-10-21 17:10:00 36.39 Yamilet [facility] Body height 2021-10-21 17:10:00 165.1 cm [facility] Body weight 2021-10-21 17:10:00 103.828 kg [facility] BMI 2021-10-21 17:10:00 38.09 kg/m2 [facility] Systolic blood pressure 2021-09-09 14:55:00 124 mm[Hg] [facility] Diastolic blood pressure 2021-09-09 14:55:00 90 mm[Hg] [facility] Heart rate 2021-09-09 14:55:00 92 /min [facility] Body temperature 2021-09-09 14:55:00 36.22 Yamilet [facility] Body height 2021-09-09 14:55:00 165.1 cm [facility] Body weight 2021-09-09 14:55:00 115.667 kg [facility] BMI 2021-09-09 14:55:00 42.43 kg/m2 [facility] Body height 2021-05-27 14:41:00 165.1 cm [facility] Body weight 2021-05-27 14:41:00 121.882 kg [facility] BMI 2021-05-27 14:41:00 44.71 kg/m2 [facility] Body height 2021-05-27 14:41:00 165.1 cm [facility] Body weight 2021-05-27 14:41:00 121.882 [facility] BMI 2021-05-27 14:41:00 44.71 kg/m2 [facility] Systolic blood pressure 2021-03-04 13:20:00 139 mm[Hg] [facility] Diastolic blood pressure 2021-03-04 13:20:00 101 mm[Hg] [facility] Heart rate 2021-03-04 13:20:00 90 /min [facility] Body temperature 2021-03-04 13:20:00 36.61 Yam[facility]t [facility] Body height 2021-03-04 13:20:00 165.1 cm [facility] Body weight 2021-03-04 13:20:00 123.832 [facility] BMI 2021-03-04 13:20:00 45.43 kg/m2 [facility] Systolic blood pressure 2021-03-04 13:20:00 139 mm[Hg] [facility] Diastolic blood pressure 2021-03-04 13:20:00 101 mm[Hg] [facility] Heart rate 2021-03-04 13:20:00 90 /min [facility] Body temperature 2021-03-04 13:20:00 36.61 [facility]t [facility] Body height 2021-03-04 13:20:00 165.1 cm [facility] Body weight 2021-03-04 13:20:00 123.832 [facility] BMI 2021-03-04 13:20:00 45.43 kg/m2 [facility] Systolic (mm Hg) 2021-09-21 18:10:00 [facility] Diastolic (mm Hg) 2021-09-21 18:10:00 [facility] [place] Height 2021-09-21 17:59:00 165.1 cm [facility] [place] Weight 2021-09-21 17:59:00 [facility] BMI Calculated 2021-09-21 17:59:00 [facility] [place] Height 2021-09-21 17:07:00 165.1 cm [facility] Weight 2021-09-21 17:07:00 [facility] [place] BMI Calculated 2021-09-21 17:07:00 [facility] [place] Height 2021-03-16 20:53:00 165.1 cm [facility] Weight 2021-03-16 20:53:00 [facility] [place] BMI Calculated 2021-03-16 20:53:00 [facility] [place] Procedures Procedure Date / Time Performed Performing Clinician Source Esophagogastroduodenoscopy, flexible, transoral; with biopsy, single or multiple 2021-03-23 14:08:00 [facility] [place] Cholecystectomy 2016-08-28 00:00:00 [facility] Edi Esophagogastroduodenoscopy [facility] [place] Encounters Start Date/Time End Date/Time Encounter Type Admission Type Attending Clinicians Care Facility Care Department Encounter ID Source 2022-10-06 13:37:35 Outpatient [facility] [id number] [facility] 2022-09-06 07:59:51 Outpatient [facility] [id number] [facility] 2022-07-26 08:37:56 Outpatient [facility] [id number] [facility] 2022-07-05 12:49:20 Outpatient [facility] [id number] [facility] 2022-02-01 08:36:01 [id number] 2022-01-31 15:44:01 [facility] [id number] 2022-01-27 14:57:02 [facility] [id number] [facility] 2021-11-29 11:47:01 Outpatient Aracelis Knox STLMLC STLMLC [id number] [facility] 2021-11-26 14:31:01 Outpatient Aracelis Knox STLMLC STLMLC [id number] [facility] 2021-09-22 14:32:51 Outpatient Aracelis Knox STLMLC STLMLC [id number] [facility] 2021-09-22 14:31:30 Outpatient Aracelis Knox STLMLC STLMLC [id number] [facility] 2021-09-22 14:23:31 Outpatient Aracelis Knox STLMLC STLMLC [id number] [facility] 2021-09-22 14:10:02 Outpatient Aracelis Knox STLMLC STLMLC [id number] [facility] 2021-09-22 13:50:12 Outpatient Aracelis Knox STLMLC STLMLC [id number] [facility] 2021-09-22 13:16:33 Outpatient Aracelis Knox STLMLC STLMLC [id number] [facility] 2021-09-22 12:48:27 Outpatient Aracelis Knox STLMLC STLMLC [id number] [facility] 2021-09-22 12:24:22 Outpatient Aracelis Knox STLMLC STLMLC [id number] [facility] 2021-09-22 12:17:49 Outpatient KnoxAracelis anthony STLMLC STLMLC [id number] [facility] 2021-09-22 12:10:39 Outpatient STLMLC STLMLC [id number] [facility] 2021-09-09 09:17:22 Outpatient JASBIR PAPPAS [facility] [id number] [facility] 2021-05-26 10:01:38 Outpatient LINDA WETZEL [facility] [id number] [facility] 2023-10-09 08:30:00 2023-10-09 08:30:00 Outpatient JASBIR PAPPAS [facility] [id number] [facility] 2022-10-10 08:45:00 2022-10-10 09:21:17 Office Visit Jasbir Pappas [facility] [place] [address] [place] [id number] [id number] [facility] 2022-07-07 08:45:00 2022-07-07 08:49:26 Outpatient JASBIR PAPPAS [facility] [id number] [facility] 2022-03-31 09:00:00 2022-03-31 09:10:21 Office Visit Jasbir Pappas [facility] [place] [id number] [id number] [id number] [facility] 2022-03-30 00:00:00 2022-03-30 00:00:00 (TEL) STLC STLC [id number] [facility] 2022-02-02 00:00:00 2022-02-02 00:00:00 OFFICE VISIT EST PT LEVEL 3 STLMLC STLC [id number] [facility] 2021-12-30 08:45:00 2021-12-30 08:45:00 Office Visit Jasbir Pappas [facility] [place] [id number] [id number] [id number] [id number] [facility] 2021-11-18 09:00:00 2021-11-18 09:24:25 Office Visit Jasbir Pappas [facility] [place] [id number] [id number] [id number] [id number] [facility] 2021-10-21 11:00:00 2021-10-21 11:27:36 Office Visit Jasbir Pappas [facility] [place] [id number] 350.1.13.58 9.2.7.2.686 [id number] [facility] 2021-10-14 00:00:00 2021-10-14 00:00:00 (TEL) STLC STLC [id number] [facility] 2021-10-14 00:00:00 2021-10-14 00:00:00 OFFICE V[facility] EST [facility] [id number] [facility] 2021-10-13 00:00:00 2021-10-13 00:00:00 Telephone Latrice Dia Sharon [facility] 1.2.840.114 350.1.13.58 9.2.7.2.686 [id number] [facility] 2021-10-08 05:46:00 2021-10-10 11:50:[address] [facility] [id number] [facility] 2021-10-04 00:00:00 2021-10-04 00:00:[address] [facility] [id number] [id number] [facility] 2021-09-27 00:00:00 2021-09-27 00:00:[address] [facility] PIJFGYRDDY [id number] [facility] 2021-09-24 00:00:00 2021-09-24 00:00:00 [facility]EL[facility] [id number] [facility] 2021-09-23 18:30:00 2021-09-23 18:30:00 PreAdmit nullFlavo erin [facility] [place] [id number] Chadd Daley 2021-09-21 11:00:00 2021-09-21 23:59:[address] [facility] [id number] [facility] 2021-09-09 08:45:00 2021-09-09 09:21:36 Consult Jasbir Pappas [facility] [place] [id number] [id number] [id number] [id number] [facility] 2021-09-08 00:00:00 2021-09-08 00:00:00 [facility]EL[facility] [id number] [facility] 2021-09-02 00:00:00 2021-09-02 00:00:00 OFFICE VISIT EST [facility] [id number] 2021-08-25 00:00:00 2021-08-25 00:00:00 Telephone Jasbir Pappas [facility] 1.2.840.114 350.1.13.58 9.2.7.2.686 [id number] [facility] 2021-08-06 00:00:00 2021-08-06 00:00:00 Telephone Jasbir Pappas [facility] [place] 1.2.840.114 350.1.13.58 9.2.7.2.686 [id number] [facility] 2021-05-27 09:28:07 2021-05-27 10:00:39 Nutrition Linda Wetzel [facility] [place] 1.2.840.114 350.1.13.58 9.2.7.2.686 [id number] [facility] 2021-05-27 09:28:07 2021-05-27 10:00:39 Nutrition Linda Wetzel [facility] [place] 1.2.840.114 350.1.13.58 9.2.7.2.686 [id number] 2021-05-26 00:00:00 2021-05-26 00:00:00 Telephone Brigette William Shara [facility] [place] 1.2.840.114 350.1.13.58 9.2.7.2.686 [id number] [facility] 2021-05-26 00:00:00 2021-05-26 00:00:00 Telephone Brigette William [facility] [place] [facility] [place] [id number] 350.1.13.58 9.2.7.2.686 [id number] 2021-05-14 00:00:00 2021-05-14 00:00:00 (TEL) STLC STLC [id number] [facility] 2021-05-10 00:00:00 2021-05-10 00:00:00 OFFICE VISIT EST PT LEVEL 3 [facility] [id number] [facility] 2021-04-06 00:00:00 2021-04-06 00:00:00 (TEL) STLC STLC [id number] [facility] 2021-03-23 13:06:00 2021-03-23 14:47:00 Bedded Outpatient nullFlavo erin [facility] [id number] Chadd Daley 2021-03-23 08:06:00 2021-03-23 09:47:[address] [id number] [facility] 2021-03-23 00:00:00 2021-03-23 00:00:00 [id number] 350.1.13.58 9.2.7.2.686 [id number] [facility] 2021-03-23 00:00:00 2021-03-23 00:00:00 Telephone Marika Cristobal [facility] 1.2840.114 350.1.13.58 9.2.7.2.686 [id number] 2021-03-04 08:10:35 2021-03-04 09:10:54 Office Visit Jasbir Pappas [facility] [place] [address] [place] 1.2.840.114 350.1.13.58 9.2.7.2.686 [id number] 2021-03-04 08:10:35 2021-03-04 09:10:54 Office Visit Jasbir Pappas [facility] [address] AND [place]OM[place] 1.2.840.114 350.1.13.58 9.2.7.2.686 [id number] [facility] 2021-02-17 00:00:00 2021-02-17 00:00:00 Outpatient STLMLC STLMLC [id number] [facility] 2020-12-01 00:00:00 2020-12-01 00:00:00 Outpatient STLMLC STLMLC [id number] [facility] 2020-10-27 00:00:00 2020-10-27 00:00:00 Outpatient STLMLC STLMLC [id number] [facility] 2020-09-02 00:00:00 2020-09-02 00:00:00 Outpatient STLMLC STLMLC [id number] [facility] 2020-08-24 00:00:00 2020-08-24 00:00:00 Outpatient STLMLC STLMLC [id number] [facility] 2020-07-31 00:00:00 2020-07-31 00:00:00 Outpatient STLMLC STLMLC [id number] [facility] Results Test Description Test Time Test Comments Results Result Co mments Source [facility] [employer] [id number] 18:40:00* Test Item Value Reference Range Interpretation Comme nts ABO/Rh (test code = ABO/Rh) A POS [facility] [employer] [id number] 18:40:00* Test Item Value Reference Range Interpretation Comme nts Glucose Lvl (test code = Glucose Lvl) 111 70-99 [facility] [id number] 18:40:00* Test Item Value Reference Range Interpretation Comme nts WBC (test code = WBC) 11.1 [facility]10.4 [facility] [id number] 18:40:00* Test Item Value Reference Range Interpretation Comme nts Hgb A1C (test code = Hgb A1C) 10.8 [facility] [id number] 13:17:00* Test Item Value Reference Range Interpretation Comme nts U Preg (test code = U Preg) Negative (03/23/21 8:17 AM) [id number] 17:38:00* Test Item Value Reference Range Interpretation Comme nts Coronavirus (COVID-19) YARI (test code = Coronavirus (COVID-19) YARI) Not Detected *NA*(03/19/21 12:38 PM) [facility]
[2025-04-09 06:07] LABS: Absolute Lymphocytes (CBC) 1.7 K/uL (0.7-4.9); Hematocrit 28.9 % (36.0-45.0); Hemoglobin 9.7 g/dL (12.0-15.0); MCH 26.4 pg (27.0-35.0); MCHC 33.4 g/dL (32.0-36.0); MCV 79.0 fL (80-100); MPV 7.9 fL (7.6-11.3); Nucleated RBC Absolute Count 0.0 (0-0); Nucleated Red Blood Cells % 0.0 % (0-0); RBC Red Blood Cell Count 3.66 M/uL (3.86-4.86); White Blood Count 9.40 thou/uL (4.3-10.9)
[2025-04-09 06:26] LABS: PT Prothrombin Time 12.6 SECONDS (10-13.0); Protime INR 1.12
[2025-04-09 06:32] LABS: ALT/SGPT 52 U/L (13-56); AST/SGOT 32 U/L (15-37); Albumin 2.3 g/dL (3.4-5.0); Albumin/Globulin Ratio 0.6 (1.1-1.8); Alkaline Phosphatase 201 U/L (45-117); Anion Gap 9.9 mEq/L (5.0-15.0); BUN Blood Urea Nitrogen 18 mg/dL (7-18); Globulin 3.6 g/dL (2.3-3.5); Glucose Level 87 mg/dL (74-106); Magnesium 1.9 mg/dL (1.6-2.4); NT PRO-BNP 622 pg/mL (<125); Potassium 3.9 mEq/L (3.5-5.1); Troponin High Sensitivity 11.2 pg/mL (<58.9)
[2025-04-09 06:41] LABS: Bilirubin Indirect, Calculated 0.1 mg/dL (0.2-0.8)
--- NOTE | 2025-04-09 07:00 | RAD REPORT ---
COMPARISON: None TECHNIQUE: Single AP view of the chest. FINDINGS: Lung volumes adequate. Cardiac silhouette is enlarged. Bilateral interstitial thickening. No pneumothorax. No large pleural effusion. No focal consolidation. No acute bony finding. IMPRESSION: 1. Bilateral interstitial thickening, could represent pulmonary edema. 2. Enlarged cardiac silhouette. Electronically signed by: William Ornelas MD 04/09/2025 06:34 AM CDT TYG Due to temporary technical issues with the PACS/Enevate reporting system, reports are being getachew d by the in-house radiologist without review as a courtesy to ensure prompt reporting the interpreting radiologist is fully responsible for the content of the report Transcribed Date/Time: 04/09/2025 6:59 AM
--- NOTE | 2025-04-09 07:20 | EDPHYS ---
Physician Documentation [facility] Name: Gemma Castillo Age: 34 yrs Sex: Female : 1990 Arrival Date: 04/09/2025 Time: 05:25 Bed 4 Private MD: ED Physician Victor Manuel Huston HPI: 04/09 05:31 This 34 yrs old Female presents to ER via Unassigned with complaints of sp4 dyspnea . Historical: - Allergies: 05:49 No Known Allergies; ha1 - PMHx: 05:49 diabetes mellitus; ha1 - PSHx: 05:49 Cholecystectomy; GASTRIC BYPASS; ha1 - Immunization history:: Adult Immunizations up to date. - Infectious Disease History:: Denies. - Social history:: Smoking status: Patient denies any tobacco usage or history of. ROS: 05:57 Constitutional: Negative for fever, chills, and weight loss, positive chest discomfort sp4 positive shortness of breath positive elevated blood pressure 05:57 All other systems are negative, Exam: 05:56 Constitutional: This is a well developed, well nourished patient who is awake, alert, sp4 and in no acute distress. Head/Face: Normocephalic, atraumatic. Eyes: Pupils equal round and reactive to light, extra-ocular motions intact. Lids and lashes normal. Conjunctiva and sclera are not injected. Cornea within normal limits. Periorbital areas with no swelling, redness, or edema. ENT: Nares patent. No nasal discharge, no septal abnormalities noted. Tympanic membranes are normal and external auditory canals are clear. Oropharynx with no redness, swelling, or masses, exudates, or evidence of obstruction, uvula midline. Mucous membranes moist. Neck: Trachea midline, no thyromegaly or masses palpated, and no cervical lymphadenopathy. Supple, full range of motion without nuchal rigidity, or vertebral point tenderness. Chest/axilla: Normal chest wall appearance and motion. Nontender with no deformity. No lesions are appreciated. Cardiovascular: Regular rate and rhythm with a normal S1 and S2. No gallops, murmurs, or rubs. No pulse deficits. Respiratory: Lungs have equal breath sounds bilaterally, clear to auscultation and percussion. No rales, rhonchi or wheezes noted. No increased work of breathing, no retractions or nasal flaring. Abdomen/GI: Soft, with normal bowel sounds. No distension or tympany. No guarding or rebound. No evidence of tenderness throughout. Back: No spinal tenderness. No costovertebral tenderness. Skin: Warm, dry with normal turgor. Normal color with no rashes, no lesions, and no evidence of cellulitis. MS/ Extremity: Pulses equal, no cyanosis. Neurovascular intact. Full, normal range of motion. Bilateral trace pedal edema Neuro: Awake and alert, GCS 15, oriented to person, place, time, and situation. Cranial nerves II-XII grossly intact. Motor strength 5/5 in all extremities. Sensory grossly intact. Psych: Awake, alert, with orientation to person, place and time. Behavior, mood, and affect are within normal limits 05:57 ECG was reviewed by the Attending Physician. EKG at 0 532, sinus rhythm with a short DE sp4 otherwise normal. Vital Signs: 05:28 BP 147 / 90; Pulse 57; Resp 19 S; Temp 97.3(T); Pulse Ox 98% on R/A; Weight 110.68 kg; ha1 Height 5 ft. 5 in. ; Pain 7/10; 06:33 BP 148 / 91; Pulse 49; Resp 18; Pulse Ox 95% on R/A; kd3 08:00 BP 150 / 92; Pulse 50; Resp 18; Temp 97.8; Pulse Ox 95% on R/A; ph 05:28 Body Mass Index 40.60 (110.68 kg, 165.1 cm) [facility] 05:28 Pain Scale: Adult ha1 Nik Coma Score: 05:56 Eye Response: spontaneous(4). Motor Response: obeys commands(6). Verbal Response: sp4 oriented(5). Total: 15. MDM: 05:31 Medical Screening Exam initiated sp4 07:15 Data reviewed: vital signs, nurses notes. ED course: No signs of overt heart failure, sp4 sinus bradycardia, normal oxygenation, workup positive for mild alkaline phosphatase elevation. Advised rechecking liver enzymes with YEAST FERMENTATION ATTENDANT in 2 to 4 weeks. . 07:18 ED course: Advised to eat high-protein diet to improve albumin level. . sp4 04/09 05:34 Order name: Basic Metabolic Panel; Complete Time: 07:11 sp4 04/09 05:34 Order name: CBC with Diff; Complete Time: 07:11 sp4 04/09 05:34 Order name: LFT's; Complete Time: 07:11 sp4 04/09 05:34 Order name: Magnesium; Complete Time: 07:11 sp4 04/09 05:34 Order name: NT PRO-BNP; Complete Time: 07:11 sp4 04/09 05:34 Order name: PT-INR; Complete Time: 07:11 sp4 04/09 05:34 Order name: Troponin HS; Complete Time: 07:11 sp4 04/09 05:43 Order name: TSH sp4 04/09 05:43 Order name: T4 Free sp4 04/09 05:34 Order name: XRAY Chest (1 view) sp4 04/09 05:34 Order name: Cardiac monitoring; Complete Time: 05:45 sp4 04/09 05:34 Order name: EKG - Nurse/Tech; Complete Time: 05:45 sp4 04/09 05:34 Order name: IV Saline Lock; Complete Time: 05:45 sp4 04/09 05:34 Order name: Labs collected and sent; Complete Time: 05:45 sp4 04/09 05:34 Order name: O2 Per Protocol; Complete Time: 05:45 sp4 04/09 05:34 Order name: O2 Sat Monitoring; Complete Time: 05:45 sp4 EC:32 Rate is 51 beats/min. Rhythm is regular, Sinus bradycardia. QRS [place] is Normal. DE sp4 interval is normal. QRS interval is normal. QT interval is normal. No Q waves. T waves are Normal. No ST changes noted. Clinical impression: No evidence of ischemia. Interpreted by me. Reviewed by me. Administered Medications: No medications were administered Disposition: 07:19 Chart complete. sp4 Disposition Summary: 04/09/25 07:19 Discharge Ordered Problem: new sp4 Symptoms: have improved sp4 Condition: Stable sp4 Diagnosis - anemia, Elevated blood pressure, noncardiac chest pain sp4 Followup: sp4 - With: Private Physician - When: 10 - 14 days - Reason: Recheck today's complaints Discharge Instructions: - Discharge Summary Sheet sp4 - Hypertension sp4 Forms: - Patient Portal Instructions sp4 Signatures: Dispatcher [employer] Ashley Chaudhary RN RN ha1 Victor Manuel Huston MD MD sp4 Corrections: (The following items were deleted from the chart) 05:35 05:35 BASIC METABOLIC PANEL+C.LAB.BRZ ordered. EDMS EDMS 05:35 05:35 CBC+H.LAB.BRZ ordered. EDMS EDMS 05:35 05:35 HEPATIC FUNCTION+C.LAB.BRZ ordered. EDMS EDMS 05:35 05:35 MAGNESIUM+C.LAB.BRZ ordered. EDMS EDMS 05:35 05:35 PROBNP+C.LAB.BRZ ordered. EDMS EDMS 05:35 05:35 PROTIME (+INR)+COAG.LAB.BRZ ordered. EDMS EDMS 05:35 05:35 Troponin High Sensitivity+C.LAB.BRZ ordered. EDMS EDMS 05:35 05:35 Chest Single View+RAD.RAD.BRZ ordered. EDMS EDMS 05:43 05:43 THYROID STIMULAT HORMONE+C.LAB.BRZ ordered. EDMS EDMS 05:43 05:43 T4 FREE+C.LAB.BRZ ordered. EDMS EDMS
--- NOTE | 2025-04-09 07:20 | ER ---
Nurse's Notes [facility] Name: Gemma Castillo Age: 34 yrs Sex: Female : 1990 Arrival Date: 04/09/2025 Time: 05:25 Bed 4 Private MD: Diagnosis: anemia, Elevated blood pressure, noncardiac chest pain Presentation: 04/09 05:28 Chief complaint: Patient states: FIVE DAYS POST , FEELING SHORTNESS OF BREATH ha1 SINCE LAST NIGHT, AND CHEST PAIN AT RIB CAGE WHEN TAKING A DEEP BREATH. 05:28 Coronavirus screen: Client denies travel out of the [place] in the last 14 days. Ebola ha1 Screen: No symptoms or risks identified at this time. Initial Sepsis Screen: Does the patient meet any 2 criteria? No. Patient's initial sepsis screen is negative. Does the patient have a suspected source of infection? No. Patient's initial sepsis screen is negative. Risk Assessment: Do you want to hurt yourself or someone else? Patient reports no desire to harm self or others. Onset of symptoms was April 09, 2025. 05:28 Method Of Arrival: Wheelchair ha1 05:28 Acuity: СВЕТЛАНА 2 ha1 Triage Assessment: 05:49 General: Appears uncomfortable, Behavior is cooperative. Pain: Complains of pain in ha1 chest Pain currently is 7 out of 10 on a pain scale. Neuro: Level of Consciousness is awake, alert, obeys commands, Oriented to person, place, time, situation. Cardiovascular: Capillary refill < 3 seconds Patient's skin is warm and dry. Respiratory: Airway is patent Respiratory effort is even, unlabored, Respiratory pattern is regular, symmetrical. Musculoskeletal: Circulation, motion, and sensation intact. Range of motion: intact in all extremities. Historical: - Allergies: 05:49 No Known Allergies; ha1 - PMHx: 05:49 diabetes mellitus; ha1 - PSHx: 05:49 Cholecystectomy; GASTRIC BYPASS; ha1 - Immunization history:: Adult Immunizations up to date. - Infectious Disease History:: Denies. - Social history:: Smoking status: Patient denies any tobacco usage or history of. Screenin:44 [facility] ED Fall Risk Assessment (Adult) History of falling in the last 3 months, lg3 including since admission No falls in past 3 months (0 pts) Confusion or Disorientation No (0 pts) Intoxicated or Sedated No (0 pts) Impaired Gait No (0 pts) Mobility Assist Device Used No (0 pt) Altered Elimination No (0 pt) Score/Fall Risk Level 0 - 2 = Low Risk Oriented to surroundings, Maintained a safe environment, Educated pt \T\ family on fall prevention, incl call for assistance when getting out of bed, Assessed \T\ reinforced patient's understanding of fall precautions. Abuse screen: Denies threats or abuse. Denies injuries from another. Nutritional screening: No deficits noted. Tuberculosis screening: No symptoms or risk factors identified. Assessment: 05:44 General: Appears in no apparent distress. uncomfortable, Behavior is calm, cooperative. lg3 Pain: Complains of pain in diaphragm Pain does not radiate. Pain currently is 5 out of 10 on a pain scale. Quality of pain is described as heavy, pressure, Pain began 1 day ago. Neuro: No deficits noted. Holt Agitation-Sedation Scale (RASS): 0 - Alert and Calm Level of Consciousness is awake, alert, obeys commands, Oriented to person, place, time, situation. Cardiovascular: No deficits noted. Heart tones S1 S2 present Capillary refill < 3 seconds Clubbing of nail beds is absent JVD is absent Patient's skin is warm and dry. Rhythm is sinus bradycardia. Respiratory: Reports shortness of breath at rest pain with respiration Airway is patent Respiratory effort is even, unlabored, Respiratory pattern is regular, symmetrical, Breath sounds are clear bilaterally. GI: No deficits noted. No signs and/or symptoms were reported involving the gastrointestinal system. Abdomen is round non-distended, obese. : No signs and/or symptoms were reported regarding the genitourinary system. EENT: No deficits noted. No signs and/or symptoms were reported regarding the EENT system. Derm: No deficits noted. No signs and/or symptoms reported regarding the dermatologic system. Skin is intact, is healthy with good turgor, Skin is dry, Skin is normal, Skin temperature is warm. Musculoskeletal: No deficits noted. No signs and/or symptoms reported regarding the musculoskeletal system. Circulation, motion, and sensation intact. Range of motion: intact in all extremities. 06:51 Reassessment: Patient appears in no apparent distress at this time. No changes from lg3 previously documented assessment. Patient and/or family updated on plan of care and expected duration. Pain level reassessed. Patient is alert, oriented x 3, equal unlabored respirations, skin warm/dry/pink. 08:00 Reassessment: Patient appears in no apparent distress at this time. Patient and/or ph family updated on plan of care and expected duration. Pain level reassessed. Patient is alert, oriented x 3, equal unlabored respirations, skin warm/dry/pink. Vital Signs: 05:28 BP 147 / 90; Pulse 57; Resp 19 S; Temp 97.3(T); Pulse Ox 98% on R/A; Weight 110.68 kg; ha1 Height 5 ft. 5 in. ; Pain 7/10; 06:33 BP 148 / 91; Pulse 49; Resp 18; Pulse Ox 95% on R/A; kd3 08:00 BP 150 / 92; Pulse 50; Resp 18; Temp 97.8; Pulse Ox 95% on R/A; ph 05:28 Body Mass Index 40.60 (110.68 kg, 165.1 cm) ha1 05:28 Pain Scale: Adult ha1 Nik Coma Score: 05:56 Eye Response: spontaneous(4). Motor Response: obeys commands(6). Verbal Response: sp4 oriented(5). Total: 15. ED Course: 05:28 Patient arrived in ED. ha1 05:30 Victor Manuel Huston MD is Attending Physician. sp4 05:44 No provider procedures requiring assistance completed. Patient maintains SpO2 lg3 saturation greater than 95% on room air. 05:44 Patient has correct armband on for positive identification. Placed in gown. Bed in low lg3 position. Call light in reach. Side rails up X 1. Client placed on continuous cardiac and pulse oximetry monitoring. NIBP monitoring applied. teletypesetter monitor on. Door closed. Noise minimized. Warm blanket given. Pillow given. Family accompanied patient. 05:46 EKG done, by insulation technician. ts3 05:46 Inserted saline lock: 20 gauge in right antecubital area, using aseptic technique. ts3 Blood collected. Flushed with 10 mL NS. 05:46 Initial lab(s) drawn, by wastewater analyst lab analyst, sent to lab. ts3 05:47 XRAY Chest (1 view) In Process Unspecified. EDMS 05:49 Triage completed. ha1 05:49 T4 Free Sent. lg3 05:49 TSH Sent. lg3 05:49 Basic Metabolic Panel Sent. lg3 05:49 CBC with Diff Sent. lg3 05:49 LFT's Sent. lg3 05:49 Magnesium Sent. lg3 05:49 NT PRO-BNP Sent. lg3 05:49 PT-INR Sent. lg3 05:49 Troponin HS Sent. lg3 06:33 Leigh Ernst, RN is Primary Nurse. kd3 08:01 IV discontinued, intact, bleeding controlled, No redness/swelling at site. Pressure ph dressing applied. 08:01 Arm band placed on. ph Administered Medications: No medications were administered Medication: 05:44 VIS not applicable for this client. lg3 Outcome: 07:19 Discharge ordered by . karie 08:00 Discharged to home with significant other, ph 08:00 Condition: good 08:00 Discharge instructions given to patient, significant other, Demonstrated understanding of instructions, follow-up care, 08:01 Patient left the ED. ph Signatures: Dispatcher [employer] EDVeronica Hernandez RN ANTONIO AbleAlona, RN RN meagan3 Leigh Ernst, RN RN kd3 Ashley Lazo RN RN ha1 Potepalov, Sergey, MD MD sp4 Laura Pires 3
[2025-04-09 07:53] LABS: Thyroid Stimulating Hormone 2.26 uIU/mL (0.358-3.740)
[2025-04-09 08:08] VITALS: O2SAT 95
[2025-04-09 08:10] VITALS: BP 150/92; TEMP 97.8
== END 2025-04-09 08:01 | disposition home or self-care (01) ==
LOC: ER 05:25
DX: O90.81 Anemia of the puerperium (principal); R03.0 Elevated blood-pressure reading, without diagnosis of hypertension; R07.89 Other chest pain
CPT/HCPCS: 36415; 71045; 80048; 80076; 83735; 83880; 84439; 84443; 84484; 85025; 85610; 93005; 99284